=== PATIENT | female | born 1950 ===

== ENCOUNTER → 2025-02-23 | Outpatient (CLI) | payer MEDICARE ==
--- NOTE | 2025-02-23 11:59 | MM ---
Reason for Exam: Hx of breast cancer, conservation therapy. Patient History: Menarche at age 16. First Full-Term at age 22. Postmenopausal. Breast cancer, left. 01/24/2023, Lumpectomy on the Left side. Radiation Therapy, left. Chemotherapy. Prior Study Comparison: No prior studies available for comparison. Tissue Density: There are scattered areas of fibroglandular density. Findings: Analyzed By CAD. Postsurgical and posttreatment changes left breast. A few scattered benign vascular and round punctate calcifications are present. Note is significant mass, suspicious microcalcification, or other discrete abnormality is seen. No priors are available for comparison purposes. Overall Assessment: Incomplete: need additional imaging evaluation, BI-RAD 0 Management: Diagnostic Breast Ultrasound of both breasts. As ordered. [facility], , 02/23/2025 11:56 AM. Electronically signed and approved by: Joe Colindres M.D. Radiologist
--- NOTE | 2025-02-23 12:22 | USB ---
Reason for Exam: Follow-up at short interval from prior study. Patient History: Menarche at age 16. First Full-Term at age 22. Postmenopausal. Breast cancer, left. 01/24/2023, Lumpectomy on the Left side. Radiation Therapy, left. Chemotherapy. Technique: Method: Whole Breast Handheld. Findings: The whole breast of both breasts, the axilla of both breasts and the retroareolar of both breasts were scanned. A complete US of all four quadrants of both breasts, axilla, and retro-areolar regions were reviewed. No solid or cystic lesions are identified. No axillary adenopathy. Overall Assessment: Probably benign, BI-RAD 3 Management: Diagnostic Mammogram of the left breast in 6 months. To assess for any evolving posttreatment change as the patient is within 3 years of her breast cancer treatment. A clinical breast exam by your physician is recommended on an annual basis and results should be correlated with mammographic findings. This exam should not preclude additional follow-up of suspicious palpable abnormalities. Results were given to the patient verbally at the time of exam. [facility], , 02/23/2025 12:19 PM. Electronically signed and approved by: Joe Colindres M.D. Radiologist
--- NOTE | 2025-02-23 19:46 | BD ---
EXAMINATION TYPE: Axial Bone Density DATE OF EXAM: 02/23/2025 CLINICAL HISTORY: 74 years old Female. 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 History of Fracture in Adulthood: no Secondary Osteoporosis: 1. Type 1 Diabetes: no 2. Hyperthyroidism: no 3. Menopause before 45: no 4. Malnutrition: no 5. Chronic liver disease: no Rheumatoid Arthritis: no Current Tobacco Use: no RISK FACTORS HISTORY OF: Hip Fracture (Right/Left): no Spine Fracture: no History of Wrist Fracture: no Surgery to Spine/Hip(right/left)/Wrist (right/left): no MEDICATIONS: Thyroid Medications: Levothyroxine How Long: past 30 years Osteoporosis Medications: no EXAM MEASUREMENTS: Bone mineral densitometry was performed using the [employer]. Bone mineral density as measured about the Lumbar spine is: ----- L1-L4(G/cm2): 1.057 T Score Values are as follows: ----- L1: -1.8 ----- L2: -1.8 ----- L3: -0.58 ----- L4: -0.4 ----- L1-L4: -1.0 Z Score Values are as follows: ----- L1: -0.4 ----- L2: -0.4 ----- L3: 0.8 ----- L4: 0.9 ----- L1-L4: 0.3 Baseline Study Bone mineral density about the R hip (g/cm2): 0.797 Bone mineral density about the L hip (g/cm2): 0.810 T Score values are as follows: -----R Neck: -2.1 -----L Neck: -2.6 -----R Total: -1.7 -----L Total: -1.6 Z Score values are as follows: -----R Neck: -0.5 -----L Neck: -1.0 -----R Total: -0.3 -----L Total: -0.2 Baseline Study FRAX%s: The graph provided illustrates a 9.3% chance for a major osteoporotic fx and a 2.7% chance fo r the hips probability for fx in 10 years time. IMPRESSION: Osteoporosis (T Score less than -2.5). There is increased fracture risk and therapy is usually indicated based on age. Re-Screen 1-2 years. NOTE: T-SCORE=SD OF THE YOUNG ADULT MEAN. [facility], , 02/23/2025 7:44 PM
== END | disposition home or self-care (01) ==
LOC: RADMAMWWP 10:31
PROVIDERS: ATTEND Family Medicine
DX: R92.323 Mammographic fibroglandular density, bilateral breasts (principal); M81.0 Age-related osteoporosis without current pathological fracture; M85.89 Other specified disorders of bone density and structure, multiple sites; Z85.3 Personal history of malignant neoplasm of breast; Z78.0 Asymptomatic menopausal state
CPT/HCPCS: 77062; 77066; 77080